=== PATIENT | male | born 1960 | race African-American/Black ===

== ENCOUNTER 2022-12-04 14:04 | Emergency (ER) | payer OTHER ==
[~2022-12-04] VITALS: Ht 172.7 cm; Wt 65.3 kg
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
--- NOTE | 2022-12-04 14:13 | NUR ---
BLOOD SUGAR 117, DR MORA AWARE
[2022-12-04] MEDS ORDERED: IV NS 0.9% 1,000 ML BAG IV ONE (14:30)
--- NOTE | 2022-12-04 14:35 | NUR ---
PT UNABLE TO PROVIDE URINE AT THIS TIME, URINAL AT BEDSIDE
--- NOTE | 2022-12-04 14:38 | NUR ---
LAB AT BEDSIDE
[2022-12-04 14:51] LABS: BASOPHILS % (AUTO) 0.9 % (0.0-2.0); EOSINOPHILS % (AUTO) 3.5 % (0.0-6.0); HEMATOCRIT 41 % (39-51); HEMOGLOBIN 13.1 g/dL (13.5-17.5); LYMPHOCYTES # (AUTO) 1.6 K/uL (0.8-4.8); LYMPHOCYTES % (AUTO) 38.3 % (20.0-44.0); MEAN CORPUSCULAR HGB CONC 32 g/dl (31.0-36.0); MEAN CORPUSCULAR VOLUME 85 fL (80-96); MONOCYTES # (AUTO) 0.4 K/uL (0.1-1.30); MONOCYTES % (AUTO) 10.5 % (2.0-12.0); NEUTROPHILS % (AUTO) 46.8 % (43.0-81.0); PLATELET COUNT (AUTO) 261 K/uL (150-450); RED BLOOD CELL COUNT(AUTO) 4.84 MIL/uL (4.5-6.0); WHITE BLOOD COUNT (AUTO) 4.2 K/uL (4.3-11.0)
[2022-12-04 15:01] LABS: CALCIUM, SERUM 7.8 mg/dL (8.5-10.1); CARBON DIOXIDE 27 mmol/L (21-32); CHLORIDE 108 mmol/L (98-107); CREATININE 1.5 mg/dL (0.6-1.3); GLUCOSE 131 mg/dL (74-106); POTASSIUM 3.7 mmol/L (3.5-5.1); SODIUM SERUM 140 mmol/L (136-145); UREA NITROGEN, BLOOD 18 mg/dL (7-18)
[2022-12-04 15:08] LABS: ALANINE AMINOTRANSFERASE 26 U/L (12-78); ALBUMIN 2.6 g/dL (3.4-5.0); ALKALINE PHOSPHATASE 59 U/L (46-116); ASPARTATE AMINOTRANSFERASE 16 U/L (15-37); BILIRUBIN,DIRECT 0.1 mg/dL (0.0-0.2); BILIRUBIN,TOTAL 0.3 mg/dL (0.2-1.0); TOTAL PROTEIN, SERUM 5.3 g/dL (6.4-8.2)
[2022-12-04 15:13] LABS: ALCOHOL, BLOOD < 3 mg/dL (0-10)
--- NOTE | 2022-12-04 15:53 | NUR ---
URINE COLLECTED AND SENT
--- NOTE | 2022-12-04 16:16 | NUR ---
SPOKE TO ANTONIO DUMONT [phone]) [phone]
[2022-12-04 16:24] LABS: BILIRUBIN,URINE NEGATIVE (NEGATIVE); COLOR,URINE YELLOW (YELLOW); LEUKOCYTE ESTERASE ,URINE NEGATIVE (NEGATIVE); NITRITE, URINE NEGATIVE (NEGATIVE); PROTEIN,URINE NEGATIVE (NEGATIVE); UGLUCOSE NEGATIVE (NEGATIVE)
[2022-12-04] MEDS ORDERED: ASPI-1169 PO (17:40)
[2022-12-04] MEDS ORDERED: HYDR12.55 PO (17:40)
[2022-12-04] MEDS ORDERED: LISI-768 PO (17:40)
[2022-12-04] MEDS ORDERED: HYDR-3980 PO (17:40)
[2022-12-04 18:22] VITALS: BP 116/63
--- NOTE | 2022-12-04 18:22 | NUR ---
IV removed. Catheter intact and site benign. Pressure and 4x4 applied to site. No bleeding noted.Patient discharged to home in stable condition. Written and verbal after care instructions given. Patient verbalizes understanding of instruction.
== END 2022-12-04 18:23 | disposition home or self-care (01) ==
LOC: ER 14:06
DX: R55 Syncope and collapse (principal); F14.10 Cocaine abuse, uncomplicated; I10 Essential (primary) hypertension; Z79.899 Other long term (current) drug therapy; Z79.82 Long term (current) use of aspirin
CPT/HCPCS: 99285; 96360; 93005; 71045; 70450; 85025; 80048; 80076; 85378; 81003; 36415; 84484 ×2; 80143; 80320; 80307; J7030; G0480